=== PATIENT | female | born 1960 | race Caucasian/White ===

== ENCOUNTER 2023-05-29 10:57 | Day surgery (SDC) | payer OTHER ==
[~2023-05-29] VITALS: Ht 160 cm; Wt 91.0 kg
[~2023-05-29 10:57] MED LIST: ASPIR-LOW81 MG PO; FOLBEE TABLET1 EACH PO; LOSARTAN-HCTZ1 EAC1 PO; PRAVASTATIN SOD40 MG PO; VIACTIV SOFT C1 EACH PO
[2023-05-29 11:41] VITALS: BP 138/74
[2023-05-29] MEDS ORDERED: HYDROCHLOROTHIA25 MG PO (11:44)
[2023-05-29 15:26] VITALS: BP 137/75
--- NOTE | 2023-05-29 15:35 | NUR ---
05/29/23 1535 Angeles Sanchez 1420 PT ARRIVED IN PACU SLEEPY WITH NO C/O'S. ABD SOFT AND PASSING FLATUS. 1440 DR AT BEDSIDE. ALL QUESTIONS ANSWERED. 1450 GETTING DRESSED. 1501 DC INSTRUCTIONS GIVEN. LEFT VIA W/C.
--- NOTE | 2023-05-31 10:42 | OR ---
[facility] [address] [place], [place] [address] Signed DATE OF OPERATION: 05/29/2023 SURGEON: Jamiie Mendoza MD PREOPERATIVE DIAGNOSES: 1. Persistent episodic diarrhea. 2. Possible prior lymphocytic colitis (2014). 3. History of cholecystectomy. POSTOPERATIVE DIAGNOSES: 1. Minimal diverticular changes of sigmoid. 2. Polyp left transverse colon at the splenic flexure (excised). PROCEDURES: 1. Total colonoscopy to cecum with biopsy of cecum and rectum. 2. Cold snare polypectomy, polyp x1. ANESTHESIA: Intravenous sedation; fentanyl 150 mcg and Versed 5 mg. INDICATION: This 62-year-old woman is a patient of CINDI Spears. She is here for consideration of colonoscopy having last undergone colonoscopy in 2014. At that time, she had probable lymphocytic colitis on previous biopsies. Pathologic description described nondestructive chronic colitis, which extended from the cecum to the rectum. The patient declined budesonide therapy at that time. She is generally free of symptoms without specific treatment. She has had cholecystectomy in the past, not currently treated with Questran. She does have episodic diarrhea, however. There is no associated bleeding. She is admitted at this time to undergo colonoscopy for surveillance and affirmation or refutation of the underlying possibility of lymphocytic colitis, as well as polypectomy as appropriate. The risk of bleeding, infection, and perforation were reviewed with her she understands wished to proceed. FINDINGS: The prep was good. Complete colonoscopy was undertaken to the cecum. The mucosa appeared normal overall. There was a polyp at the splenic flexure on the transverse colonic side, which was excised with cold snare technique. The remaining colon was normal. DESCRIPTION OF PROCEDURE: Electronically Signed By: JAIMIE MENDOZA MD 05/31/23 1042 PATIENT NAME: JAZZY VIZCAINO OPERATIVE REPORT DATE OF : 58 REPORT #: [id number] PHYSICIAN: JAIMIE MENDOZA MD PCP: CINDY ARMIJO PA-C REPORT IS CONFIDENTIAL AND NOT TO BE RELEASED WITHOUT AUTHORIZATION [facility] [address] [place], [place] [address] Signed The patient was brought to the endoscopy suite and placed in the lateral decubitus position, given intravenous sedation to the point of slurred speech and nystagmus. Digital rectal examination was normal. An Olympus video colonoscope was passed in the rectum and manipulated throughout the colon noting a few minimal diverticular change of the sigmoid and left colon. Scope was ultimately passed to the cecum. The ileocecal valve and appendiceal orifice were normal. Biopsies were taken of the cecum and appeared normal. The scope was then withdrawn and careful examination showed no sign of abnormality into the left transverse colon where a sessile polyp was noted, this was excised with cold snare technique. There was no significant bleeding at the base of the excision. The past path polyp was sent for pathology. The scope was further withdrawn showing no other abnormality other than a few scattered diverticula of the sigmoid. Biopsies were taken of the rectum that appeared normal. Retroflexed view was normal other than some hypertrophied anal papilla. The scope was removed and the patient was taken to the recovery room in good condition. CONCLUDING DIAGNOSIS: No gross evidence of colitis. One polyp excised and minimal diverticular change. PLAN: We will review the pathology report and proceed based on those findings. Empiric treatment for diarrhea with Questran 4 g p.o. daily pending our pathology report and review will be offered. MD MELY Robert/MODL /[id number] cc: Cindy Armijo PA-C Electronically Signed By: JAIMIE MENDOZA MD 05/31/23 1042 PATIENT NAME: JAZZY VIZCAINO OPERATIVE REPORT DATE OF : 58 REPORT #: [id number] PHYSICIAN: JAIMIE MENDOZA MD PCP: CINDY ARMIJO PA-C REPORT IS CONFIDENTIAL AND NOT TO BE RELEASED WITHOUT AUTHORIZATION [facility] [address] [place] [id number] Signed Copies: CINDY ARMIJO PA-C ~ Electronically Signed By: JAIMIE MENDOZA MD 05/31/23 1042 PATIENT NAME: JAZZY VIZCAINO OPERATIVE REPORT DATE OF : 58 REPORT #: [id number] PHYSICIAN: JAIMIE MENDOZA MD PCP: CINDY ARMIJO PA-C REPORT IS CONFIDENTIAL AND NOT TO BE RELEASED WITHOUT AUTHORIZATION
--- NOTE | 2023-06-01 14:43 | PATH ---
[facility] [address] [place], [place] [address] Signed SPECIMEN(S): A RIGHT COLON BIOPSY SPECIMEN(S): B TRANSVERSE COLON POLYP SPECIMEN(S): C RECTUM COLON BIOPSY SPECIMEN SOURCE: A. RIGHT COLON BIOPSY B. TRANSVERSE COLON POLYP C. RECTUM COLON BIOPSY CLINICAL HISTORY: Colonoscopy. Diarrhea; diverticuli; polyp FINAL PATHOLOGIC DIAGNOSIS: A. Right colon biopsy: - Hyperplastic polyp (one fragment). B. Transverse colon polyp: - Tubular adenoma (three fragments). C. Rectum, colon biopsy: - Hyperplastic polyps (two fragments). VR:[facility] MICROSCOPIC EXAMINATION: Histologic sections of all submitted blocks are examined by light microscopy. These findings, together with the gross examination, support the pathologic diagnosis. GROSS DESCRIPTION: A. The specimen, labeled and designated "[place], R, right colon (NOS) biopsy," is received in formalin and consists of 1 kaufman soft tissue fragment measuring 0.3 x 0.5 cm is submitted entirely in (A1). B. The specimen, labeled and designated "[place], R, colon, transverse polypectomy," is received in formalin and consists of 1 kaufman soft polypoid tissue fragment measuring 0.5 x 0.7 cm, resection margin is inked green specimen is trisected and submitted entirely in (B1). C. The specimen, labeled and designated "Kiet, R, colon, rectum biopsy," is received in formalin and consists of 2 kaufman soft tissue fragments measuring 0.3 x 0.4 cm in greatest dimension are submitted entirely in (C1). MMA (under the direct supervision of a pathologist) The Gross Description was prepared using a voice recognition system. The report was reviewed for accuracy; however, sound-alike word errors, addition and/or PATIENT NAME: JAZZY VIZCAINO PATHOLOGY DATE OF : 58 REPORT #: [id number] PHYSICIAN: MARGARITO HERNANDEZ PCP: JUAN HASSAN PA-C REPORT IS CONFIDENTIAL AND NOT TO BE RELEASED WITHOUT AUTHORIZATION [facility] [address], [place] [address] Signed deletions may occur. If there is any question about this report, please contact Client Services. PERFORMING LABORATORY: Technical component was performed by [facility], [address] [place] [address] (CLIA# [id number]). Professional interpretation was performed by [facility] - [facility], [address] [place] [id number] (CLIA#: [id number]). Diagnostician: Dhaval Robertson MD Pathologist Electronically Signed 06/01/2023 Copies: ~ PATIENT NAME: JAZZY VIZCAINO PATHOLOGY DATE OF : 58 REPORT #: [id number] PHYSICIAN: [facility] PCP: JUAN HASSAN PA-C REPORT IS CONFIDENTIAL AND NOT TO BE RELEASED WITHOUT AUTHORIZATION
== END 2023-05-29 15:01 | disposition home or self-care (01) ==
LOC: OPS 10:57 → DS 11:05 → OPS 13:00 → DS 13:00 → OPS 15:01
PROVIDERS: ATTEND Surgery
PROC: 0DBL8ZZ Excision of Transverse Colon, Via Natural or Artificial Opening Endoscopic (ICD-10-PCS; 2023-05-29)
PROC: 0DBP8ZZ Excision of Rectum, Via Natural or Artificial Opening Endoscopic (ICD-10-PCS; 2023-05-29)
PROC: 0DBH8ZZ Excision of Cecum, Via Natural or Artificial Opening Endoscopic (ICD-10-PCS; principal; 2023-05-29 13:00)
DX: Z12.11 Encounter for screening for malignant neoplasm of colon (principal); D12.3 Benign neoplasm of transverse colon; E66.9 Obesity, unspecified; I10 Essential (primary) hypertension; Z90.49 Acquired absence of other specified parts of digestive tract; Z90.711 Acquired absence of uterus with remaining cervical stump
CPT/HCPCS: 99153; G0500; J2250; J3010; J7121